=== PATIENT | female | born 1965 | race Caucasian/White ===

== ENCOUNTER 2018-11-10 16:39 | Emergency (ER) | payer MEDICAID ==
[2018-11-10] MEDS ORDERED: cloNIDine 0.1 MG Tab PO ONE (17:22)
[2018-11-10] MEDS ORDERED: Ketorolac 30 MG/ML SDV IVPUSH ONE (17:38)
[2018-11-10] MEDS ORDERED: methylPREDNISolone Sodium Succinate 125 MG/2 ML SDV IVPUSH ONE (17:38)
[2018-11-10] MEDS ORDERED: Sodium Chloride 0.9% 10 ML Syringe FLUSH PRN (17:38)
[2018-11-10] MEDS ORDERED: HYDROmorphone 1 MG/ML Syringe IVPUSH ONE (17:39)
--- NOTE | 2018-11-10 17:41 | EDM.PDOC ---
<Jean Azevedo G - Last Filed: 11/10/18 17:42> ED HPI GENERAL MEDICAL PROBLEM - General Chief Complaint: Back Pain or Injury Stated Complaint: BACK HURTS Time Seen by Provider: 11/10/18 17:30 Source of Information: Reports: Patient, Family, Old Records, RN History Limitations: Reports: No Limitations - History of Present Illness INITIAL COMMENTS - FREE TEXT/NARRATIVE: 53 yo female presents with low back pain after assisting an older man in a walker that was losing his balance and falling backwards. Did not have pain immediately. Now has severe R low back pain with radiation down her R leg. Has a pHx of spinal fusion and has had some tingling down her R leg, this is much more severe now. 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 (see below) (none) Lower Back Pain Score (Numeric/FACES): 9 - Related Data Allergies Allergy/AdvReac Type Severity Reaction Status Date / Time No Known Drug Allergies Allergy Other Verified 11/10/18 17:28 Home Meds: Home Meds Aspirin 81 mg PO DAILY 01/07/18 [History] Cholecalciferol (Vitamin D3) [Vitamin D3] 2,000 unit PO DAILY 01/07/18 [History] Escitalopram [Lexapro] 20 mg PO DAILY 01/07/18 [History] Fluticasone Propionate [Flonase] 1 spray NS DAILY 01/07/18 [History] Lisinopril 40 mg PO DAILY 01/07/18 [History] Mirtazapine [Remeron] 30 mg PO BEDTIME 01/07/18 [History] Pravastatin [Pravachol] 40 mg PO BEDTIME 01/07/18 [History] Ranitidine HCl [Ranitidine] 150 mg PO DAILY 01/07/18 [History] cloNIDine [Catapres] 0.1 mg PO BEDTIME 01/07/18 [History] metFORMIN [Glucophage XR] 1,000 mg PO BIDMEALS 01/07/18 [History] traMADol [Ultram] 50 mg PO Q8H PRN 01/07/18 [History] Gabapentin [Neurontin] 300 mg PO DAILY 01/09/18 [History] Gabapentin [Neurontin] 600 mg PO BEDTIME 01/09/18 [History] Insulin NPH Hum/Reg Insulin Hm [Relion Novolin 70-30 Flexpen] 33 unit SQ DAILY 11/10/18 [History] Insulin NPH Hum/Reg Insulin Hm [Relion Novolin 70-30 Flexpen] 37 unit SQ ACDINNER 11/10/18 [History] Past Medical History HEENT History: Reports: Impaired Vision, Otitis Media Cardiovascular History: Reports: High Cholesterol, Hypertension Respiratory History: Reports: Sleep Apnea [employer] SUPERVISOR History: Reports: Musculoskeletal History: Reports: Back Pain, Chronic Neurological History: Reports: Migraines Psychiatric History: Reports: Depression Endocrine/Metabolic History: Reports: Diabetes, Type II - Infectious Disease History Infectious Disease History: Reports: Chicken Pox - Past Surgical History HEENT Surgical History: Reports: Oral Surgery Cardiovascular Surgical History: Reports: None Respiratory Surgical History: Reports: None Endocrine Surgical History: Reports: None Neurological Surgical History: Reports: Spinal Fusion Musculoskeletal Surgical History: Reports: Arthroscopic Knee, Other (See Below) Other Musculoskeletal Surgeries/Procedures:: toe surgery to remove broken off needle Social & Family History - Family History Family Medical History: Noncontributory - Tobacco Use Smoking Status *Q: Former Smoker Used Tobacco, but Quit: Yes Month/Year Tobacco Last Used: 22 years - Caffeine Use Caffeine Use: Reports: Coffee Caffeine Use Comment: 2 cups a day - Recreational Drug Use Recreational Drug Use: No ED ROS GENERAL - Review of Systems Review Of Systems: ROS reveals no pertinent complaints other than HPI. Constitutional: Reports: No Symptoms HEENT: Reports: No Symptoms Musculoskeletal: Reports: Back Pain Neurological: Reports: Numbness (R leg/foot) ED EXAM,LOWER BACK PAIN/INJURY - Physical Exam Exam: See Below Exam Limited By: No Limitations General Appearance: Alert, WD/WN, No Apparent Distress, Obese Eye Exam: Bilateral Eye: Normal Inspection Ears: Normal External Exam, Normal Canal, Hearing Grossly Normal Nose: Normal Inspection, No Blood Throat/Mouth: Normal Inspection, Normal Lips, Normal Voice, No Airway Compromise Head: Atraumatic, Normocephalic Neck: Normal Inspection Respiratory/Chest: No Respiratory Distress, Lungs Clear, Normal Breath Sounds, No Accessory Muscle Use Cardiovascular: Regular Rate, Rhythm, No Edema GI/Abdominal: Soft, Non-Tender Extremities: Normal Inspection, No Pedal Edema, Limited Range of Motion (due to the resulting low back pain. ). No: Pedal Edema Neurological: Alert, Normal Mood/Affect, CN II-XII Intact, No Motor/Sensory Deficits, Oriented x 3 DTR - Lower Extremities: 3+: Knee (R), Knee (L), Ankle (R), Ankle (L) Psychiatric: Normal Affect, Normal Mood Skin Exam: Warm, Dry, Intact, Normal Color, No Rash Course - Vital Signs Last Recorded V/S: Last Vital Signs Temp 37.3 C 11/10/18 17:24 Pulse 87 11/10/18 17:24 Resp 16 11/10/18 17:24 BP 207/112 H 11/10/18 17:39 Pulse Ox 94 L 11/10/18 17:24 - Orders/Labs/Meds Orders: Active Orders 24 hr Category Date Time Status Sodium Chloride 0.9% [Saline Flush] Med 11/10/18 17:38 Active 10 ml FLUSH ASDIRECTED PRN Saline Lock Insert [OM.PC] Routine Oth 11/10/18 17:38 Ordered Medication Orders Sodium Chloride (Saline Flush) 10 ml FLUSH ASDIRECTED PRN PRN Reason: Keep Vein Open Last Admin: 11/10/18 17:58 Dose: 10 ml Meds: Medications Generic Name Dose Route Start Last Admin Trade Name Freq PRN Reason Stop Dose Admin Sodium Chloride 10 ml 11/10/18 17:38 11/10/18 17:58 Saline Flush FLUSH 10 ml ASDIRECTED PRN Administration Keep Vein Open Discontinued Medications Generic Name Dose Route Start Last Admin Trade Name Freq PRN Reason Stop Dose Admin Clonidine HCl 0.1 mg 11/10/18 17:22 11/10/18 17:39 Catapres PO 11/10/18 17:23 0.1 mg ONETIME ONE Administration Hydromorphone HCl 1 mg 11/10/18 17:39 11/10/18 17:57 Dilaudid IVPUSH 11/10/18 17:40 1 mg ONETIME ONE Administration Ketorolac Tromethamine 30 mg 11/10/18 17:38 11/10/18 17:54 Toradol IVPUSH 11/10/18 17:39 30 mg ONETIME ONE Administration Methylprednisolone Sodium Succinate 125 mg 11/10/18 17:38 11/10/18 17:56 Solu-Medrol IVPUSH 11/10/18 17:39 125 mg ONETIME ONE Administration Departure - Departure Disposition: Home, Self-Care 01 Clinical Impression: Spasm of muscle of lower back - Discharge Information Referrals: Dom Muhammad MD [Primary Care Provider] - Forms: ED Department Discharge Additional Instructions: Instead of tramadol try using Percocet 5/325, #20 tablets, one or 2 every 4 hours as needed for pain For muscle spasm take Flexeril 10 mg 3 times per day. Both of these medications cause sedati and can impair driving and operating machinery so use caution. For nausea you may use it use Zofran 4 mg sublingual 3 times per day. You will probably continue to have pain for 2 or 3 days however if you actually develop true muscle weakness or problems with your bladder or bowels then that constitutes an emergency and he should come to the emergency department immediately. Return to work in 2 or 3 days or as soon as you begin to feel better. If you are not improving by 3 days then be sure to see your Dr. 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 She was helping a gentleman stand up who was using a walker. He started to fall and so she sort of grabbed him and as he sat back on the seat. She didn't feel any pain initially but after about 30 minutes she started having pain in her right side of her back kind of the area of the right iliac crest. She had a little bit of numbness in the right foot but she does not have any kind of weakness in the right leg or foot and does not have any kind of bladder or bowel problems. She's had back problems in the past and a spinal you should and has had some diabetic peripheral neuropathy. She gets short of a pins and needles feeling in her right foot and for this she takes tramadol. The tramadol isn't helping with the present pain Free Text/Narrative Re-Assessment/Exam: 11/10/18 18:51 On my exam there is a negative straight leg raise bilaterally. No demonstrable decrease in strength of the right leg ankle or foot. There is a little bit of palpable spasm to the right side of the lumbar area in the area of the right iliac crest consistent with muscle spasm Departure - Departure Time of Disposition: 18:51 Condition: Fair
== END 2018-11-10 19:12 | disposition home or self-care (01) ==
LOC: JP.ED 16:39
DX: M62.830 Muscle spasm of back (principal); I10 Essential (primary) hypertension; E11.9 Type 2 diabetes mellitus without complications; E78.00 Pure hypercholesterolemia, unspecified; F32.9 Major depressive disorder, single episode, unspecified; Z87.891 Personal history of nicotine dependence; Z79.82 Long term (current) use of aspirin; Z79.4 Long term (current) use of insulin; Z79.899 Other long term (current) drug therapy
CPT/HCPCS: 96374; 96375; 99283; A9270; J1170; J1885; J2930

== ENCOUNTER 2023-01-23 06:34 | Day surgery (SDC) | payer MEDICAID, OTHER ==
[2023-01-23] MEDS ORDERED: Sodium Chloride 0.9% 1,000 ML IV SCH (07:00)
[2023-01-23] MEDS ORDERED: Midazolam 1 MG/ML 2 ML SDV ONE (07:32)
[2023-01-23] MEDS ORDERED: Propofol 200 MG/20 ML SDV ONE (07:32)
[2023-01-23] MEDS ORDERED: fentaNYL 50 MCG/ML SDV ONE (07:32)
== END 2023-01-23 09:30 | disposition home or self-care (01) ==
LOC: JP.SDS 06:34
PROVIDERS: ATTEND Surgery
DX: Z12.11 Encounter for screening for malignant neoplasm of colon (principal); I10 Essential (primary) hypertension; K21.9 Gastro-esophageal reflux disease without esophagitis; E11.9 Type 2 diabetes mellitus without complications; Z88.8 Allergy status to other drugs, medicaments and biological substances
CPT/HCPCS: 45378; 82947; J2250; J2704; J3010; J7030